=== PATIENT | female | born 1985 | race African-American/Black ===

== ENCOUNTER 2022-03-16 20:22 | Observation (INO) | payer MEDICARE, MEDICAID ==
[2022-03-16 23:39] VITALS: BMI 45.9
[2022-03-16] MEDS ORDERED: Acetaminophen 650 MG Suppository PR PRN (23:51)
[2022-03-16] MEDS ORDERED: Ondansetron ODT 4 MG TAB PO PRN (23:51)
[2022-03-16] MEDS ORDERED: Ondansetron PF 4 MG/2 ML Vial IVP PRN (23:51)
[2022-03-16] MEDS ORDERED: Acetaminophen 325 MG TAB PO PRN (23:51)
[2022-03-17 01:11] LABS: HBSAg Index 0.29 S/CO (0-0.99); Hep B Surf Ag Non-Reactive S/CO (NonReactive)
[2022-03-17] MEDS ORDERED: hydrALAZINE 20 MG/ML VIAL SLOW IVP PRN (03:55)
[2022-03-17] MEDS ORDERED: HumaLOG 300 UNITS/3 ML VIAL SC PRN ×2 (03:56)
[2022-03-17] MEDS ORDERED: Dextrose 5% in Water 1,000 ML IV PRN (03:56)
[2022-03-17] MEDS ORDERED: Dextrose 50% Abboject 50 ML SYRINGE SLOW IVP PRN (03:56)
[2022-03-17] MEDS: Acetaminophen/Codeine 30-300mg Tablet PO PRN ×2 (04:12→17:56)
[2022-03-17 07:01] LABS: #Basophils 0.1 thou/uL (0.0-0.2); #Eosinphils 0.3 thou/uL (0.0-0.7); #Lymphocytes 1.2 thou/uL (1.20-3.40); #Monocytes 0.7 thou/uL (0.11-0.59); %Basophils 0.7 % (0.0-1.0); %Eosinophils 4.4 % (0.0-10.0); %Lymphocytes 16.7 % (21.0-51.0); %Monocytes 9.2 % (0.0-10.0); %Neutrophils 68.9 % (42.0-75.0); Hemoglobin 11.7 g/dL (12.0-16.0); Mean Corpuscular HGB CONC 32.5 g/dL (32.0-36.0); Mean Corpuscular Hemoglobin 30.5 pg (27.0-31.0); Mean Corpuscular Volume 93.7 fL (78.0-98.0); Mean Platelet Volume 10.5 fL (7.4-10.4); Platelet Count 144 thou/uL (130-400); RBC Distribution Width 15.1 % (11.5-14.5); Red Blood Cell (RBC) Count 3.85 mill/uL (4.20-5.40); White Blood Cell (WBC) Count 7.2 thou/uL (4.8-10.8)
[2022-03-17 07:17] LABS: Anion Gap 21 mmol/L (10-20); BUN (Urea Nitrogen) 51 mg/dL (7.0-18.7); Calc. Creatinine Clearance 15 mL/min (70-130); Calcium 9.8 mg/dL (7.8-10.44); Carbon Dioxide 28 mmol/L (22-29); Chloride 97 mmol/L (98-107); Estimated GFR 5; Glucose 76 mg/dL (70-105); Potassium 4.6 mmol/L (3.5-5.1); Sodium 141 mmol/L (136-145)
[2022-03-17] MEDS ORDERED: rOPINIRole HCl 2 MG TAB PO SCH (09:00)
[2022-03-17] MEDS ORDERED: Pregabalin 50 MG CAP PO SCH (09:00)
[2022-03-17] MEDS ORDERED: Metoprolol Tartrate 25 MG TAB PO SCH (09:00)
[2022-03-17] MEDS: Heparin 5,000 UNITS/ML VIAL SC SCH ×2 (09:52→16:13)
[2022-03-17] MEDS: Sevelamer Carbonate 800 MG TAB PO SCH ×2 (09:53→16:13)
[2022-03-17] MEDS ORDERED: DULoxetine 60 MG CAP PO SCH (10:30)
[2022-03-17 20:08] VITALS: BP 167/73
[2022-03-17 20:10] VITALS: TEMP 97.7
[2022-03-18] MEDS ORDERED: DULoxetine 30 MG CAP PO SCH (09:00)
== END 2022-03-17 20:36 ==
LOC: 2NO 20:22
PROVIDERS: ADMIT Internal Medicine; ATTEND Internal Medicine
DX: I13.2 Hypertensive heart and chronic kidney disease with heart failure and with stage 5 chronic kidney disease, or end stage renal disease (principal); E11.22 Type 2 diabetes mellitus with diabetic chronic kidney disease; E11.40 Type 2 diabetes mellitus with diabetic neuropathy, unspecified; N18.6 End stage renal disease; I50.9 Heart failure, unspecified; D63.1 Anemia in chronic kidney disease; E87.5 Hyperkalemia; E78.5 Hyperlipidemia, unspecified; M46.20 Osteomyelitis of vertebra, site unspecified; I73.9 Peripheral vascular disease, unspecified; Z79.899 Other long term (current) drug therapy; Z88.8 Allergy status to other drugs, medicaments and biological substances; Z99.2 Dependence on renal dialysis
CPT/HCPCS: 36415; 36416; 80048; 85025; 87340; 90935; 96372; 96374; G0257; G0378; J1644; J2405

== ENCOUNTER 2022-03-21 00:22 | Inpatient (IN) | payer MEDICARE, MEDICAID ==
[2022-03-21 00:55] LABS: #Eosinphils 0.3 thou/uL (0.0-0.7); #Lymphocytes 1.3 thou/uL (1.20-3.40); #Monocytes 0.7 thou/uL (0.11-0.59); #Neutrophils 4.7 thou/uL (1.40-6.50); %Basophils 0.2 % (0.0-1.0); %Eosinophils 3.7 % (0.0-10.0); %Monocytes 9.9 % (0.0-10.0); %Neutrophils 67.2 % (42.0-75.0); Hemoglobin 10.6 g/dL (12.0-16.0); Mean Corpuscular HGB CONC 34.5 g/dL (32.0-36.0); Mean Corpuscular Hemoglobin 32.6 pg (27.0-31.0); Mean Corpuscular Volume 94.3 fL (78.0-98.0); Platelet Count 123 thou/uL (130-400); RBC Distribution Width 15.9 % (11.5-14.5); Red Blood Cell (RBC) Count 3.24 mill/uL (4.20-5.40); White Blood Cell (WBC) Count 6.9 thou/uL (4.8-10.8)
[2022-03-21 01:19] LABS: ALT (SGPT) 14 U/L (8-55); AST (SGOT) 9 U/L (5-34); Albumin 3.6 g/dL (3.5-5.0); Alkaline Phosphatase 160 U/L (40-110); Anion Gap 24 mmol/L (10-20); BUN (Urea Nitrogen) 86 mg/dL (7.0-18.7); Bilirubin, Total 0.3 mg/dL (0.2-1.2); Calc. Creatinine Clearance 0 mL/min (70-130); Calcium 9.8 mg/dL (7.8-10.44); Carbon Dioxide 24 mmol/L (22-29); Chloride 98 mmol/L (98-107); Estimated GFR 3; Globulin 3.8 g/dL (2.4-3.5); Glucose 86 mg/dL (70-105); Potassium 5.3 mmol/L (3.5-5.1); Protein, Total 7.4 g/dL (6.0-8.3); Sodium 141 mmol/L (136-145)
[2022-03-21] MEDS ORDERED: hydrALAZINE 20 MG/ML VIAL ONE (03:05)
[2022-03-21] MEDS ORDERED: Labetalol HCl 100 MG/20 ML VIAL ONE (04:04)
[2022-03-21 04:28] LABS: Troponin I 0.041 ng/mL (< 0.028)
[2022-03-21 07:44] LABS: Troponin I 0.033 ng/mL (< 0.028)
[2022-03-21] MEDS ORDERED: Dextrose 50% Abboject 50 ML SYRINGE SLOW IVP PRN (09:27)
[2022-03-21] MEDS ORDERED: Dextrose 5% in Water 1,000 ML IV PRN (09:27)
[2022-03-21] MEDS ORDERED: HumaLOG 300 UNITS/3 ML VIAL SC PRN ×2 (09:27)
[2022-03-21] MEDS ORDERED: Acetaminophen 325 MG TAB PO PRN (09:27)
[2022-03-21] MEDS ORDERED: Senokot S 8.6-50 MG TAB PO PRN (09:27)
[2022-03-21] MEDS ORDERED: Ondansetron PF 4 MG/2 ML Vial IVP PRN (09:27)
[2022-03-21] MEDS ORDERED: Ondansetron ODT 4 MG TAB PO PRN (09:27)
[2022-03-21 10:37] LABS: Anion Gap 20 mmol/L (10-20); BUN (Urea Nitrogen) 42 mg/dL (7.0-18.7); Calc. Creatinine Clearance 0 mL/min (70-130); Calcium 10.4 mg/dL (7.8-10.44); Carbon Dioxide 28 mmol/L (22-29); Chloride 96 mmol/L (98-107); Estimated GFR 5; Glucose 68 mg/dL (70-105); Potassium 3.8 mmol/L (3.5-5.1); Sodium 140 mmol/L (136-145)
[2022-03-21 10:41] LABS: Troponin I 0.023 ng/mL (< 0.028)
[2022-03-21] MEDS: Acetaminophen/Codeine 30-300mg Tablet PO PRN (15:10)
[2022-03-21] MEDS ORDERED: Acetaminophen/Codeine 30-300mg Tablet ONE (15:19)
[2022-03-21] MEDS: Sevelamer Carbonate 800 MG TAB PO SCH ×2 (16:08→18:50)
[2022-03-21 16:18] LABS: SARS-CoV-2 NAA Rapid Test Not Detected (NotDetected)
[2022-03-21 17:33] VITALS: BMI 44.9
[2022-03-21] MEDS ORDERED: Morphine 2 MG/ML VIAL SLOW IVP SCH (18:51)
[2022-03-21] MEDS: Metoprolol Tartrate 25 MG TAB PO SCH (20:59)
[2022-03-22] MEDS: Acetaminophen/Codeine 30-300mg Tablet PO PRN ×2 (00:22→08:36)
[2022-03-22] MEDS ORDERED: hydrALAZINE 20 MG/ML VIAL SLOW IVP PRN (05:17)
[2022-03-22 05:25] LABS: #Eosinphils 0.3 thou/uL (0.0-0.7); #Lymphocytes 1.4 thou/uL (1.20-3.40); #Monocytes 0.7 thou/uL (0.11-0.59); %Basophils 0.1 % (0.0-1.0); %Eosinophils 4.4 % (0.0-10.0); %Lymphocytes 22.3 % (21.0-51.0); %Monocytes 11.3 % (0.0-10.0); %Neutrophils 61.9 % (42.0-75.0); Hemoglobin 10.2 g/dL (12.0-16.0); Mean Corpuscular HGB CONC 32.8 g/dL (32.0-36.0); Mean Corpuscular Hemoglobin 30.9 pg (27.0-31.0); Mean Corpuscular Volume 94.2 fL (78.0-98.0); Mean Platelet Volume 10.4 fL (7.4-10.4); Platelet Count 130 thou/uL (130-400); RBC Distribution Width 15.8 % (11.5-14.5); Red Blood Cell (RBC) Count 3.29 mill/uL (4.20-5.40); White Blood Cell (WBC) Count 6.4 thou/uL (4.8-10.8)
[2022-03-22 05:44] LABS: ALT (SGPT) 14 U/L (8-55); AST (SGOT) 10 U/L (5-34); Albumin 3.4 g/dL (3.5-5.0); Alkaline Phosphatase 146 U/L (40-110); Anion Gap 19 mmol/L (10-20); BUN (Urea Nitrogen) 54 mg/dL (7.0-18.7); Bilirubin, Total 0.3 mg/dL (0.2-1.2); Calc. Creatinine Clearance 13 mL/min (70-130); Calcium 9.8 mg/dL (7.8-10.44); Carbon Dioxide 30 mmol/L (22-29); Chloride 96 mmol/L (98-107); Estimated GFR 4; Globulin 3.7 g/dL (2.4-3.5); Glucose 103 mg/dL (70-105); Potassium 4.7 mmol/L (3.5-5.1); Protein, Total 7.1 g/dL (6.0-8.3); Sodium 140 mmol/L (136-145)
[2022-03-22] MEDS: Sevelamer Carbonate 800 MG TAB PO SCH ×2 (08:34→12:42)
[2022-03-22] MEDS: Metoprolol Tartrate 25 MG TAB PO SCH (08:36)
[2022-03-22] MEDS ORDERED: DULoxetine 30 MG CAP PO SCH (09:00)
[2022-03-22] MEDS ORDERED: Pregabalin 50 MG CAP PO SCH (09:00)
[2022-03-22] MEDS ORDERED: rOPINIRole HCl 2 MG TAB PO SCH (09:00)
[2022-03-22] MEDS ORDERED: Labetalol HCl 100 MG/20 ML VIAL SLOW IVP PRN (11:45)
[2022-03-22 11:59] VITALS: TEMP 98.4
[2022-03-22 13:12] VITALS: BP 145/82
== END 2022-03-22 16:15 | DRG 640 ==
LOC: ERS 00:22 → ERHOLD 03:33 → NEURO 16:50
PROVIDERS: ADMIT Internal Medicine; ATTEND Internal Medicine
PROC: 5A1D70Z Performance of Urinary Filtration, Intermittent, Less than 6 Hours Per Day (ICD-10-PCS; principal; 2022-03-21)
DX: E87.70 Fluid overload, unspecified (principal); N18.6 End stage renal disease; J96.01 Acute respiratory failure with hypoxia; I13.2 Hypertensive heart and chronic kidney disease with heart failure and with stage 5 chronic kidney disease, or end stage renal disease; N17.9 Acute kidney failure, unspecified; I16.1 Hypertensive emergency; Z68.41 Body mass index [BMI] 40.0-44.9, adult; Z20.822 Contact with and (suspected) exposure to COVID-19; E78.5 Hyperlipidemia, unspecified; E11.22 Type 2 diabetes mellitus with diabetic chronic kidney disease; G47.33 Obstructive sleep apnea (adult) (pediatric); E11.51 Type 2 diabetes mellitus with diabetic peripheral angiopathy without gangrene; E66.01 Morbid (severe) obesity due to excess calories; D63.1 Anemia in chronic kidney disease; I50.9 Heart failure, unspecified; G25.81 Restless legs syndrome; Z99.2 Dependence on renal dialysis; Z90.09 Acquired absence of other part of head and neck; Z88.8 Allergy status to other drugs, medicaments and biological substances; Z79.899 Other long term (current) drug therapy
CPT/HCPCS: 36415; 36416; 71045; 80053; 83880; 84484; 85025; 90935; 93005; 96374; G0257; J0360; J2270; U0002